=== PATIENT | male | born 1960 | race Caucasian/White ===

== ENCOUNTER 2019-01-18 19:21 | Emergency (ER) | payer OTHER ==
[~2019-01-18] VITALS: Ht 170.2 cm; Wt 76.7 kg
--- OUTSIDE RECORDS SUMMARY | 2019-01-18 19:24 | XMS REPORT | Continuity of Care Document ---
Author Author [facility] Organization [facility] Address Unknown Phone Unavailable Care Team Providers Care Bag End Sewer Name Role Phone [facility] Unavailable Unavailable Problems Problem Status Onset Date Classification Date Reported Comments Source BACK Active 11/24/2016 [facility] [place] JOINT PAIN Active [facility] Medications No Data Provided for This Section Allergies, Adverse Reactions, Alerts No Known Medication Allergies Immunizations No Data Provided for This Section Results No Data Provided for This Section Pathology Reports No Data Provided for This Section Diagnostic Reports Report Value Date Source Spine thoracic 3 views DX EXAMINATION: 1. Thoracic spine 2-3 views 2. Lumbar spine - 2 to 3 views HISTORY: M54.5 Low back pain; thoracic and lumbar back pain; thoracic diffuse idiopathic skeletal hyperostosis; lumbago FINDINGS: Frontal, lateral, and swimmer's views of the thoracic spine and frontal, lateral, and coned lateral views of the lumbar spine are performed without comparison. There is no listhesis of the thoracic spine. The thoracic vertebral body heights are normal without compression fracture. There is diffuse idiopathic skeletal hyperostosis of the midthoracic spine with superimposed mild multilevel degenerative disc disease. Swimmer's view of the thoracic spine demonstrates C5- 6 and C6-7 degenerative disc disease. There are bilateral C7 cervical ribs and there are hypoplastic bilateral T12 ribs. There is no listhesis of the lumbar spine. The lumbar vertebral body heights are normal without compression fracture. There is mild degenerative endplate spur formation at L3-L4, but the lumbar intervertebral disc spaces are normal. The sacral ala appear intact. IMPRESSION: 1. Diffuse idiopathic skeletal hyperostosis of the midthoracic spine with superimposed mild multilevel degenerative disc disease of the midthoracic spine. 2. Mild degenerative endplate spur formation at L3-L4, but normal lumbar intervertebral disc spaces and vertebral body heights. 3. C5-6 and C6-7 degenerative disc disease visualized on the swimmer's view of the thoracic spine. 4. Note made of bilateral C7 cervical ribs and hypoplastic bilateral T12 ribs. 12/04/2016 [facility] Spine lumbar 2 or 3 views DX EXAMINATION: 1. Thoracic spine 2-3 views 2. Lumbar spine - 2 to 3 views HISTORY: M54.5 Low back pain; thoracic and lumbar back pain; thoracic diffuse idiopathic skeletal hyperostosis; lumbago FINDINGS: Frontal, lateral, and swimmer's views of the thoracic spine and frontal, lateral, and coned lateral views of the lumbar spine are performed without comparison. There is no listhesis of the thoracic spine. The thoracic vertebral body heights are normal without compression fracture. There is diffuse idiopathic skeletal hyperostosis of the midthoracic spine with superimposed mild multilevel degenerative disc disease. Swimmer's view of the thoracic spine demonstrates C5- 6 and C6-7 degenerative disc disease. There are bilateral C7 cervical ribs and there are hypoplastic bilateral T12 ribs. There is no listhesis of the lumbar spine. The lumbar vertebral body heights are normal without compression fracture. There is mild degenerative endplate spur formation at L3-L4, but the lumbar intervertebral disc spaces are normal. The sacral ala appear intact. IMPRESSION: 1. Diffuse idiopathic skeletal hyperostosis of the midthoracic spine with superimposed mild multilevel degenerative disc disease of the midthoracic spine. 2. Mild degenerative endplate spur formation at L3-L4, but normal lumbar intervertebral disc spaces and vertebral body heights. 3. C5-6 and C6-7 degenerative disc disease visualized on the swimmer's view of the thoracic spine. 4. Note made of bilateral C7 cervical ribs and hypoplastic bilateral T12 ribs. 12/04/2016 [facility] Consultation Notes No Data Provided for This Section Discharge Summaries No Data Provided for This Section History and Physicals No Data Provided for This Section Vital Signs No Data Provided for This Section Encounters Location Location Details Encounter Type Encounter Number Reason For Visit Attending Provider ADM Date DC Date Status Source [facility] Outpatient [id number] JOINT PAIN [facility] 03/27/2011 03/27/2011 Active [facility] [id number] [facility] 12/04/2016 12/05/2016 [facility] [id number] [facility] 01/01/2017 01/31/2017 [facility] Procedures No Data Provided for This Section Assessment and Plan No Data Provided for This Section Plan of Care No Data Provided for This Section Social History Social History Date Source No data available for this section 01/31/2017 LYDIA [place] No data available for this section 12/05/2016 LYDIA Hutchinson Family History No Data Provided for This Section Advance Directives No Data Provided for This Section Functional Status No Data Provided for This Section
--- OUTSIDE RECORDS SUMMARY | 2019-01-18 19:24 | XMS REPORT | Summary of Care ---
Author Author [facility] Address Unknown Phone Unavailable Encounter Conchitar_tiffany([facility]) [id number] Date(s): 01/01/17 - 01/30/17 [facility] [place] Discharge Disposition: Home or Self Care Attending Physician: Watson Murray MD Vital Signs No data available for this section Problem List No data available for this section Allergies, Adverse Reactions, Alerts No data available for this section Medications No data available for this section Results No data available for this section Immunizations No data available for this section Procedures No data available for this section Social History No data available for this section Assessment and Plan No data available for this section
--- OUTSIDE RECORDS SUMMARY | 2019-01-18 19:24 | XMS REPORT | Summary of Care ---
Author Author [facility] [place] Organization [facility] [place] Address Unknown Phone Unavailable Encounter Clauntr_tiffany([facility]) [id number] Date(s): 12/04/16 - 12/04/16 [facility] [place] [address] [id number] [phone] Discharge Disposition: Home or Self Care Attending [...]
[2019-01-18] MEDS ORDERED: POTASSIUM CHLORIDE 20 MEQ TAB CR PO STA (21:14)
[2019-01-18] MEDS ORDERED: POTASSIUM CHLORIDE 20 MEQ TAB CR PO ONE (22:02)
== END 2019-01-18 22:00 | disposition home or self-care (01) ==
LOC: ER 19:21 → FSED 22:00
DX: L27.0 Generalized skin eruption due to drugs and medicaments taken internally (principal); T36.0X5A Adverse effect of penicillins, initial encounter; K52.9 Noninfective gastroenteritis and colitis, unspecified; E87.6 Hypokalemia
CPT/HCPCS: 80048; 85025; 99283